=== PATIENT | male | born 1935 | race Caucasian/White ===

== ENCOUNTER 2018-06-15 10:48 | Outpatient (RCR) | payer MEDICARE, BC | END 2018-06-18 | LOC: PT 10:48 | PROVIDERS: ATTEND Neurological Surgery | DX: M48.062 Spinal stenosis, lumbar region with neurogenic claudication (principal) | CPT/HCPCS: 97162; G8978; G8979 ==

== ENCOUNTER → 2018-07-07 | Outpatient (CLI) | payer MEDICARE, BC ==
[2018-07-07 08:23] LABS: BLOOD UREA NITROGEN 20 mg/dL (7-26); BUN/CREATININE RATIO 22 (6-25); CREATININE, SERUM 0.91 mg/dL (0.72-1.25); EST GLOMERULAR FILTRATION RATE > 60 ML/MIN (60-)
--- NOTE | 2018-07-07 09:17 | Diagnostic Imaging Report ---
PROCEDURE: CHEST XRAY LINE PLACEMENT COMPARISON: None. INDICATIONS: S/P PICC LINE PLACEMENT FINDINGS: Right upper extremity PICC projects over the low superior vena cava. Lungs are well-inflated without consolidation or effusion. Cardiomediastinal contour and pulmonary vasculature are within normal limits when accounting for portable, AP technique. No acute osseous abnormality. CONCLUSION: Tip of right upper extremity PICC projects over the low superior vena cava. Dictated by: Kam Tapia M.D. on 07/07/2018 at 9:25 Electronically approved by: Kam Tapia M.D. on 07/07/2018 at 9:25
== END ==
LOC: DX 07:30
PROVIDERS: ATTEND Internal Medicine Infectious Disease
DX: B95.8 Unspecified staphylococcus as the cause of diseases classified elsewhere (principal)
CPT/HCPCS: 36415; 36569; 71045; 82565; 84520

== ENCOUNTER 2018-07-18 15:00 | Outpatient (RCR) | payer MEDICARE, BC | END 2018-07-19 | LOC: PT 15:00 | PROVIDERS: ATTEND Neurological Surgery | DX: M48.062 Spinal stenosis, lumbar region with neurogenic claudication (principal); M62.81 Muscle weakness (generalized); R26.9 Unspecified abnormalities of gait and mobility | CPT/HCPCS: 97110 ×7; 97112 ×2; 97116; 97139; G8978; G8979 ==

== ENCOUNTER 2018-08-17 14:58 | Outpatient (RCR) | payer MEDICARE, BC | END 2018-08-18 | LOC: PT 14:58 | PROVIDERS: ATTEND Neurological Surgery | DX: M48.062 Spinal stenosis, lumbar region with neurogenic claudication (principal); M62.81 Muscle weakness (generalized); R26.9 Unspecified abnormalities of gait and mobility | CPT/HCPCS: 97110 ×7; 97112 ×4; 97116 ×3; 97139; G8978; G8979 ==

== ENCOUNTER 2018-09-06 13:50 | Outpatient (RCR) | payer MEDICARE, BC | END 2018-09-18 | LOC: PT 13:50 | PROVIDERS: ATTEND Neurological Surgery | DX: M48.062 Spinal stenosis, lumbar region with neurogenic claudication (principal) | CPT/HCPCS: 97110 ×6; 97112 ×2; 97116; 97530 ×2; G8979; G8980 ==

== ENCOUNTER → 2021-04-15 | Outpatient (CLI) | payer MEDICARE, BC ==
[~2021-04-15] MED LIST: IOPAMIDOL 370 MG/ML 200 ML INFUS..BTL INJ ONE; SODIUM CHLORIDE 0.9% 100 ML ONE
[2021-04-16 10:59] LABS: CREATININE, SERUM 1.07 mg/dL (0.72-1.25); EST GLOMERULAR FILTRATION RATE > 60 ML/MIN (60-)
== END ==
LOC: CT 14:41
PROVIDERS: ATTEND Internal Medicine Cardiovascular Disease
DX: I65.23 Occlusion and stenosis of bilateral carotid arteries (principal)
CPT/HCPCS: 36415; 70498; 82565; J7050; Q9967